=== PATIENT | female | born 1940 | race Caucasian/White ===

== ENCOUNTER 2022-04-16 09:15 | Outpatient (RCR) | payer MEDICARE, OTHER, SELFPAY ==
--- NOTE | 2022-02-28 15:43 | PT.OPDN ---
PT [place] [facility] Daily Note PT [facility] Daily Note Start: 01/22/22 08:20 Freq: Status: Active Protocol: Document 02/28/22 15:14 BMS (Rec: 02/28/22 15:17 BMS [email or web address]) E-signed By Nita Albarran, PT PT OP Daily Progress Note Visit Information Note Type Daily Note,Recert/Progress Note Visit Number [id number] Insurance Authorized Visits MC no info in chart Insurance Information Recert Due Date 03/11/22 Insurance Name Medicare B Medical Diagnosis low back pain Treating Diagnosis low back pain Referring MD Esther CALDERÓN Subjective Subjective have been doing so well! pain is so much better after I see you, and I have been pretty good since I saw you last (2 weeks ago). 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 2. Mild central canal stenosis at L3-4 and L2-3. Mild to mod disc degeneration at multiple levels. Soft tissue mass or cyst on left pelvic sidewall. hx cancer w abdominal surgery Home Exercise Home Exercise Comments Access Code: [email or web address] URL: [email or web address]/ Date: 02/28/2022 Prepared by: Nita Albarran Exercises Standing Hip Flexion AROM - 1 x daily - 5 x weekly - 1-3 sets - 10-20 reps - 5-10 sec hold Standing Hip Extension with Counter Support - 1 x daily - 5 x weekly - 1-3 sets - 10-20 reps - 5-10 sec hold Standing Hip Abduction with Counter Support - 1 x daily - 5 x weekly - 1-3 sets - 10-20 reps - 5-10 sec hold Standing Hamstring Curl with Chair Support - 1 x daily - 5 x weekly - 1-3 sets - 10-20 reps - 5-10 sec hold - hold 30 -60 sec stretch ~~~ Access Code: [email or web address] URL: [email or web address]://[email or web address]/ Date: 01/31/2022 Prepared by: Nita Albarran Exercises ? Standing Lumbar Extension at Wall - Forearms - 2 x daily - 5 x weekly - 1-2 sets - 5 reps - 10 sec hold ? Seated Thoracic Lumbar Extension - 2 x daily - 5 x weekly - 1-3 sets - 5 reps - 5 -10 sec hold - hold 30-60 sec stretch ? Seated Lumbar Flexion Stretch - 1 x daily - 5 x weekly - 1-3 sets - 10-20 reps - 5-10 sec hold - hold 30-60 sec stretch ? Standing Lumbar Spine Flexion Stretch Counter - 2 x daily - 5 x weekly - 2 sets - hold 30-60 sec stretch Access Code: [email or web address] URL: [email or web address] Date: 01/08/2022 Prepared by: Nita Albarran Exercises - Modified Venancio Stretch - 2 x daily - 5 x weekly - 2 sets - hold 30-60 sec stretch - Prone Hip Extension - 1 x daily - 5 x weekly - 1-3 sets - 10-20 reps - 5-10 sec hold - Wall Squat - 1 x daily - 5 x weekly - 10-20 reps - 5-10 sec hold - Gastroc Stretch on Wall - 2 x daily - 5 x weekly - 2 sets - hold 30-60 sec stretch - Doorway Pec Stretch at 90 Degrees Abduction - 2 x daily - 5 x weekly - 2 sets - hold 30-60 sec stretch - Standing Shoulder Flexion Full Range - 1-2 x daily - 5 x weekly - 1-3 sets - 10-20 reps - 5-10 sec hold - step up lateral 6 step x10 eachside, fwd x 10 B, retro x 5 B Objective Other/Pertinent Objective ROM fingertips to floor, B SB and ext WFL STRENGTH: MMT hip flex, quad, HS, adduct and abduct in sitting, ankle groups B all 5/ 5 with no increased pain GAIT: able to stand upright more easily though does fade into slump with increased active time Patient Instructed in Risks/Benefits Yes Therapeutic Exercise Therapeutic Exercise Minutes (minutes) 30 Therapeutic Exercise: To Restore Access Code: [email or web address] Functional Status URL: https://[email or web address]/ Date: 02/28/2022 Prepared by: Nita Albarran Exercises - Standing Hip Flexion AROM 2x5 each side - Standing Hip Extension with Counter Support - 2x5 - standing hip abduction with Counter Support - 2x5 B - Standing Hamstring Curl with Chair Support - 2x5 B recumbent bike 5 min seat 11 - slant board calf stretches 2 x 30 sec - back ext 2x10 30# - leg press 2x10 at 20# Manual Therapy Techniques Manual Therapy Minutes (minutes) 15 Manual Therapy Techniques STM MFR to lowback, gluteals, into thoracic paraspinals. Treatment Minutes Timed Code Treatment Minutes 45 Total Treatment Time 45 Billing Units Manual Therapy Units 1 Therapeutic Exercise Units 2 Assessment/Impression Assessment/Impression patient does still fatigue with ex but is much more tolerant than before. She does have to be careful and required cueing as she started to hip hike or trendelenberg affecting standing exercises. encouraged her to add these in EOD . She remains appropriate to continue with skilled physical therapy to improve mobility, strength and functional balance/gait to imrpove tolerance of activity in daily life and to reduce pain limiting function Plan of Care Physical Therapy Goals STG meet 2-3 weeks MET 1) Patient will demonstrate I HEP and self care/home mgmt techniques for pain management, core stability and ROM. VARIABLE 2 ) Pt report pain <2 -3/10 with activity and provocative positions rolling over in bed, standing up, getting out of car etc. LTG meet 4-8 weeks reports met 1) Pt demo ability to lift 10-15# for home and self care without increased pain using most appropriate applicable body mechanics MET 2) Pt report pain not interrupting sleep more than 2x/ week without use of medication. MET 3) Pt will demo 500' ambulation without limp and with best mechanics and balance to decrease risk of fall with community ambulation for things such as grocery shopping, participation in fitness activities. Modified 4) Pt will demo ability to return to walking, and functional strengthening to maximize independence and longevity. Daily Plan of Care Comments 1-2x/week x 3-4 weeks Recertification Information Initial Certification Date 12/13/21 Recertification Start Date 03/11/22 Recertification Due Date 04/11/22 Reasons to Continue Skilled Therapy patient progressing well but has had limited tolerance of activity and ex up to this point. She does respond well to manual therapy which reduces her recovery time from days (without manual work) to hours (with manual work). Rehabilitation Potential good Continued Plan of Care and Interventions ther ex, neuromuscular re-ed, gait, manual therapy, self residential mgmt, ther activity, poss estim Provider Signature Shows Agreement With POC & Medical Necessity Physician Comment/Change Comment or Changes Physician NPI Number #
== END 2023-02-13 23:59 | disposition home or self-care (01) ==
PROVIDERS: PCP Physician Assistant Medical; Visit Provider Family Medicine
DX: M54.50 Low back pain, unspecified (principal); Z51.89 Encounter for other specified aftercare
CPT/HCPCS: 97110; 97140; 97535

== ENCOUNTER 2022-05-14 15:19 | Outpatient (CLI) | payer MEDICARE, OTHER, SELFPAY ==
[2022-05-14 15:24] LABS: Cholesterol* 153 mg/dL (90-199); HDL Cholesterol* 50 mg/dL (>=50); LDL Cholesterol Calculated 70 mg/dL (<100); Triglycerides* 167 mg/dL (40-149)
== END 2022-05-14 15:20 | disposition home or self-care (01) ==
PROVIDERS: PCP Physician Assistant Medical; Visit Provider Physician Assistant Medical
DX: E78.5 Hyperlipidemia, unspecified (principal)
CPT/HCPCS: 80061

== ENCOUNTER 2022-05-16 12:10 | Outpatient (CLI) | payer MEDICARE, OTHER, SELFPAY ==
[2022-05-16 21:54] LABS: Albumin* 4.4 g/dL (3.3-5.0)
[2022-05-16 21:55] LABS: Chloride* 101 mmol/L (96-114); Potassium* 4.7 mmol/L (3.6-5.1); Sodium* 136 mmol/L (135-149)
[2022-05-16 21:57] LABS: Aspartate Amino Transferase* 26 U/L (12-35); Bilirubin Total* 0.5 mg/dL (0.1-1.5); Carbon Dioxide* 28 mmol/L (20-32); Creatinine* 0.7 mg/dL (0.5-1.5); Estimated Glomerular Filt Rate 86 ml/min; Total Protein* 6.9 g/dL (6.0-8.3)
[2022-05-16 21:58] LABS: Alanine Aminotransferase* 16 U/L (4-35); Alkaline Phosphatase* 86 U/L (40-150); Blood Urea Nitrogen* 21 mg/dL (7-30); Calcium* 9.4 mg/dL (8.4-10.6); Glucose* 103 mg/dL (60-115)
== END 2022-05-16 12:11 | disposition home or self-care (01) ==
LOC: LKVREF 12:13
PROVIDERS: PCP Physician Assistant Medical; Visit Provider Physician Assistant Medical
DX: Z00.00 Encounter for general adult medical examination without abnormal findings (principal); I10 Essential (primary) hypertension; E78.5 Hyperlipidemia, unspecified
CPT/HCPCS: 80053

== ENCOUNTER 2023-07-03 11:47 | Outpatient (REF) | payer MEDICARE, OTHER, SELFPAY ==
--- OUTSIDE RECORDS SUMMARY | 2023-07-07 06:40 | XMS_ITS | Continuity of Care Document ---
Author Name Unknown Organization [facility] Address [address] [address] [place] [address] Phone Care Team Providers Care Cycle Specialist Name Role Phone Shakeel Ambriz MD Unavailable Unavailable Allergies, Adverse Reactions, Alerts Substance Reaction Status Criticality oxycodone Active No Information lidocaine Active No Information Medications Medication Instructions Dosage Effective Dates (start - stop) Status Comments aspirin 81 mg chewable tablet chew 1 tablet by oral route every day 81 MG - Active lisinopril 10 mg tablet take 1 Tablet by ORAL route every day 10 MG - Active Procedures Procedure Date Telephone E&M III 21-30 Min PETTY Offic/outpt E&m Estab Low-mod 9 Colonoscopy Flex; Dx (mar Pro) 19 Offic/outpt E&m New Mod-hi Advance Directives Directive Yes / No Effective Date File Name No Information Encounters Encounter Description Practice Location Reason(s) For Visit Diagnoses Date Provider Providers Copied on Encounter [facility], [address] [address], [place], [place], [id number], [place] tel:[phone] [facility] No Information 0 Pb [place]. [address] [facility], [facility] [address], [place], [place], [id number], [place]. tel:[phone] Telephone E&M III 21-30 Min MD PETTY [facility], [address] [address], [place], [id number], [place] tel:[phone] [facility] GI Symptoms or Concerns (chief complaint) Unspecified constipation 0 Pb [place]ford. [address] [facility], [facility] [address], [place], [id number], [place]. tel:[phone] Referring Provider: Kemi Goldsmith PAC, [address] [facility] [place], [address]. tel:[phone] [facility], [address] [address], [place], [place], [id number], [place] tel:[phone] No Information 0 No Information Referring Provider: Kemi Goldsmith PAC, [address] [facility] [place], [address]. tel:[phone] Offic/outpt E&m Estab Low-mod [facility] JUAN DANIEL, [address] [address], [facility] [place], [id number], [place] tel:[phone] [facility] GI Symptoms or Concerns (chief complaint) Abnormal CAT scanDietary counseling and surveillanceEl evated blood-pressure reading, w/o diagnosis of htn 9 Pb [place]. [address] [facility], [facility] [address], [place], [id number], [place]. tel:[phone] Referring Provider: Referral Self, USE FOR SELF REFERRALS. [facility] JUAN DANIEL, [address] [address], [facility] [place], [id number], [place] tel:[phone] [facility] Hemorrhoids, internalDivert iculosis of colon without diverticulitis Abnormal findings on dx imaging of prt digestive tractDvrtclos of lg int w/o perforation or abscess w/o bleedingOther hemorrhoids 9 Danielle Lindsey. [address] [facility], [facility] [address], [place], [id number], [place]. tel:[phone] Referring Provider: Alyson SEO, [address] [place], [address]. tel:[phone] Offic/outpt E&m New Mod-hi [facility] JUAN DANIEL, [address] [address], [facility] [place], [place], [id number], [place] tel:[phone] [facility] GI Symptoms or Concerns (chief complaint) Unspecified constipationAb normal CAT scanDietary counseling and surveillanceEl evated blood-pressure reading, w/o diagnosis of htn 0 9 Pb [place]. [address] [facility], [facility] [address], [place], [place], [address], [place]. tel:[phone] Referring Provider: Alyson Gu [facility], [address] [place] [address], [address]. tel:[phone] Family History Family Member Type Diagnosis Age At Onset Mother Problem (finding) aneurysm of thoracic ao rta Brother Problem (finding) Problem (finding) Family history of malignant neoplasm of breast in first degree relative Brother Problem (finding) Non-Hodgkin's lymphoma Father Problem (finding) aneurysm of abdominal a brady Immunizations Vaccine Date Status Comments Seasonal trivalent influenza vaccine, adjuvanted, preservative free administered Note: [facility] bi-direct ional interface ; Source: Other Registry influenza, high dose seasona l, preservative-free administered Note: [facility] bi-direct ional interface ; Source: Other Registry influenza, high dose seasona l, preservative-free administered Note: [facility] bi-direct ional interface ; Source: Other Registry influenza, high dose seasona l, preservative-free administered Note: [facility] bi-direct ional interface ; Source: Other Registry Influenza administered Note: [facility] bi-d irectional interface ; Source: Other Registry Prevnar 13 administered Note: [facility] bi-d irectional interface ; Source: Other Registry Pneumococcal conjugate PCV 13 administere d Source: Other Provider Fluzone Quad 6mo or older administered Note: [facility] bi-direct ional interface ; Source: Other Registry Influenza, seasonal, injectable administe red Note: [facility] bi- directional interface ; Source: Other Registry Influenza, seasonal, injectable administe red Note: [facility] bi- directional interface ; Source: Other Registry Payers Payer name Insurance type Covered republican ID Authoriza tion(s) Medicare NGS MB [id number] [facility] [id number] Social History Type Description Quantity Date Captured Comments Alcohol Use Details Unknown Caffeine Use Details Unknown Tobacco Use Status No Information Smoking Status No Information Sex Female Chief Complaint And Reason For Visit No Information Reason For Referral Reason For Referral No Information Plan Of Treatment Date Type Action Status Goal Lifestyle education regardin g diet completed Goal Lifestyle education regardin g diet completed Referral Ordered: Colonoscopy Appointment date/timeframe: 11/11/2018 ordered History Of Present Illness Encounter Date Complaint History Of Prese nt Illness GI Symptoms or Concerns This is an 79-year-old female who I am doing a telephone consultation on for followup for constipation. The patient is in a private setting. Her , Wenceslao was nearby, but not on the phone. I did have her consent to proceed with the telephone consultation. The total call was 24 minutes, the majority spent on medical consultation.The patient has a history of endometrial cancer having surgery in 2018 with subsequent chemotherapy and radiation. She does comment that the uterus was taken out in sections and she worries about cancer cells intra-abdominally. She has been followed by an oncologist. They recently told her that they could extend the visits to every 6 months. 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 She has hypertension, DVT in her left femoral vein a couple of years ago perioperatively, diverticulosis. [facility]vi GI Symptoms or Concerns This is a 78-year-old female who comes in for followup after her recent colonoscopy. I had seen her previously for constipation and thickening of the cecum and proximal ascending seen on CT scan. Please refer to my note from 11/04/2018 for further details. Subsequently, she had the colonoscopy done by Dr. Brown on 11/12/2018. This was a normal exam to the cecum except for some sigmoid diverticulosis. There were small internal hemorrhoids. Rest of the exam was unremarkable. GI Symptoms or Concerns This is a 78-year-old female with a history of endometrial cancer who is status post surgery in August 2017 with subsequent radiation treatment. I do not have all the records regarding this, but I have some. She also has a history of basal cell cancer status post Mohs surgery in 1993. She is referred by her primary clinic, [facility], for consultation for problems with her bowel movements. She states ever since August 2017 after the surgery, she has had problems with constipation. She has used Senokot and another laxative. That can help to some degree, but intermittently she has worsening symptoms and then we will have pencil-thin stools or scybalous stools, sometimes explosive diarrhea. The explosive diarrhea was happening more often recently and she went in and was seen with her primary clinic. She had a CT scan done on 10/29/2018. This showed abnormal cecum and proximally ascending colon with circumferential wall thickening and pericolonic fat stranding suggesti Functional Status Date Functional Assessmen t No Information Instructions Date Instruction Additional Infor samanta PROVIDER PLANAt this point, she may be able to decrease the MiraLax slightly perhaps to a 3/4 of a capful, half a capful a day to see if that helps improve her bowel movements and symptoms or not. If she is still having problems, we could consider a pelvic floor testing by referring her to the Pelvic Floor Clinic, where her pelvic floor could be assessed, look for rectocele, etc. She will touch base with her oncologist. She will let me know if she is still having problems or issues, concerns or other questions. Related to Unspecified constipation Lifestyle education regarding di et Related to Dietary counseling and surveillance Lifestyle education regarding di et Related to Dietary counseling and surveillance Assessments Type Assessment Date No Information Patient Care Teams Name Effective Dates (start - stop) Status Members No Information
== END 2023-07-03 11:48 | disposition home or self-care (01) ==
LOC: NFLDREF 11:47
PROVIDERS: PCP Physician Assistant Medical; Referring Provider Physician Assistant Medical; Visit Provider Physician Assistant Medical
DX: E78.5 Hyperlipidemia, unspecified (principal); I10 Essential (primary) hypertension; M54.50 Low back pain, unspecified; G89.29 Other chronic pain; K59.00 Constipation, unspecified
CPT/HCPCS: 80053

== ENCOUNTER 2023-08-21 13:02 | Outpatient (CLI) | payer MEDICARE, OTHER, SELFPAY ==
--- OUTSIDE RECORDS SUMMARY | 2023-08-21 13:24 | XMS_ITS | Clinical Summary ---
Author Name Unknown Organization [facility] Address [address] [place] [address] Care Team Providers Care Take Down Inspector Name Role Phone [facility] Primary Care Provider + Allergies No known active allergies Medications Medication Sig Dispensed Refills Start Date End Date Status lisinopril (PRINIVIL,ZESTRIL) 10 MG tablet Take 10 mg by mouth daily 0 Active Docusate Sodium (DOCQLACE PO) Take 100 mg by mouth 2 times daily 0 Active polyethylene glycol (MIRALAX/GLYCOLAX) powder Take 17 g by mouth daily as needed for constipation 0 Active oxyCODONE-acetamino phen (PERCOCET) 5-325 MG per tablet Take 1-2 tablets by mouth every 4 hours as needed for moderate to severe pain Take 1 tablet po every 4 hours as needed for pain 1-5/10 or Take 2 tablet po every 4 hours as needed for pain 6-10/10 0 Active Warfarin Sodium (COUMADIN PO) Take 4 mg by mouth daily 0 Active Acetaminophen (TYLENOL PO) Take 650 mg by mouth every 4 hours as needed for mild pain or fever 0 Active Active Problems Problem Noted Date Diagnosed Date Right knee pain 04/04/2015 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 Provider to review and confirm. HTN (hypertension) 04/04/2015 H/O bilateral cataract extraction 04/04/2015 Social History Tobacco Use Types Packs/Day Years Used Date Smoking Tobacco: Never Alcohol Use Standard Drinks/Week Comments Not Asked 0 (1 standard drink = 0.6 oz pur e alcohol) Adolescent Education Answer Date Record ed Getting School Help Needed Not on file 05/13 Sex and Gender Information Value Date Recorded Sex Assigned at Not on file Gender Identity Not on file Sexual Orientation Not on file Last Filed Vital Signs Vital Sign Reading Time Taken Comments Blood Pressure 143/76 02/21/2023 12:00 AM CDT Pulse 93 02/21/2023 12:00 AM CDT Temperature 36.6 ??C (97.9 ??F) 02/20/2023 7:50 PM CD T Respiratory Rate 18 02/20/2023 7:50 PM CDT Oxygen Saturation 95% 02/20/2023 11: 15 PM CDT Inhaled Oxygen Concentration - - Weight 113.8 kg (250 lb 12.8 oz) 2014 11:09 AM CDT Height 175.3 cm (5' 9) 04/04/2015 11:5 4 AM CDT Body Mass Index 37.04 04/04/2015 11:54 AM CDT Plan of Treatment Health Maintenance Due Date Last Done Comments ADVANCE CARE PLANNING 1940 ANNUAL REVIEW OF HM ORDERS 1940 DEXA 1940 DTAP/TDAP/TD IMMUNIZATION (1 - Tdap) 01/31/1964 ZOSTER IMMUNIZATION (1 of 2) 1989 RSV VACCINE ( & 60+) (1 - 1-dose 60+ series) 1999 FALL RISK ASSESSMENT 01/31/2004 MEDICARE ANNUAL WELLNESS VISIT 01/31/2004 Pneumococcal Vaccine: 65+ Years (2 of 2 - PPSV23 or PCV20) 06/02/2016 06/02/2015 COVID-19 Vaccine ( season) 2023 04/10/2022, 12/21/2021, 05/04/2021, Additional history exists INFLUENZA VACCINE (#1) 2023 , 04/28/2020, 06/03/2019, Additional history exists PHQ-2 (once per calendar year) 2023 HPV IMMUNIZATION Aged Out No longer e ligible based on patient's age to complete this topic IPV IMMUNIZATION Aged Out No longer e ligible based on patient's age to complete this topic MENINGITIS IMMUNIZATION Aged Out No l onger eligible based on patient's age to complete this topic RSV MONOCLONAL ANTIBODY Aged Out No l onger eligible based on patient's age to complete this topic Care Teams Take Down Inspector Relationship Specialty Start Date End Date [facility] [address] [place] [id number] PCP - General 02/20/23
--- OUTSIDE RECORDS SUMMARY | 2023-08-21 13:24 | XMS_ITS | Referral Summary ---
Author Name Unknown Organization [facility] Address [address] [place] [address] Care Team Providers Care Director Process Name Role Phone [facility], [facility] Primary Care Provider + Allergies No known [...] 04/04/2015 11:54 AM CDT Plan of Treatment Not on file Care Teams Director Process Relationship Specialty Start Date End Date [facility], [facility] [address] [place] [address] PCP - General 02/20/23
--- OUTSIDE RECORDS SUMMARY | 2023-08-21 13:24 | XMS_ITS | Continuity of Care Document ---
Author Name Unknown Organization [facility] Address [address] [address] [place] [address] Phone Care Team Providers Care Supervisor Diagnostic Name Role Phone Shakeel Ambriz MD Unavailable [...] Diagnoses Date Provider Providers Copied on Encounter [facility], [address] [address], [place], [place], [id number], [place] tel:[phone] [facility] No Information 0 Pb [place]. [address] [facility], [facility] [address], [place], [place], [id number], [place]. tel:[phone] Telephone E&M III 21-30 Min MD PETTY [facility], [address] [address], [place], [id number], [place] tel:[phone] [facility] GI Symptoms or Concerns (chief complaint) Unspecified constipation 0 Pb [place]. [address] [facility], [facility] [address], [place], [id number], [place]. tel:[phone] Referring Provider: Kemi Goldsmith PAC, [address] [facility] [place], [address]. tel:[phone] [facility], [address] [address], [place], [place], [id number], [place] tel:[phone] No Information 0 No Information Referring Provider: Kemi Goldsmith PAC, [address] [facility] [place], [address]. tel:[phone] Offic/outpt E&m Estab Low-mod [facility] JUAN DANIEL, [address] [address], [facility] [place], [place], [id number], [place] tel:[phone] [facility] GI Symptoms or Concerns (chief complaint) Abnormal CAT scanDietary counseling and surveillanceEl evated blood-pressure reading, w/o diagnosis of htn 9 Pb [place]. [address] [facility], [facility] [address], [place], [id number], [place]. tel:[phone] Referring Provider: Referral Self, USE FOR SELF REFERRALS. [facility] JUAN DANIEL, [address] [address], [facility] [place], [id number], [place] tel:[phone] [facility] Hemorrhoids, internalDivert iculosis of colon without diverticulitis Abnormal findings on dx imaging of prt digestive tractDvrtclos of lg int w/o perforation or abscess w/o bleedingOther hemorrhoids 9 Danielle Lindsey. [address] [facility], [facility] [address], [place], [address], [place]. tel:[phone] Referring Provider: Alyson SEO, [address] [place], [address]. tel:[phone] Offic/outpt E&m New Mod-hi [facility] JUAN DANIEL, [address] [address], [facility] [place], [place], [id number], [place] tel:[phone] [facility] GI Symptoms or Concerns (chief complaint) Unspecified constipationAb normal CAT scanDietary counseling and surveillanceEl evated blood-pressure reading, w/o diagnosis of htn 0 9 Pb [place]. [address] [facility], [facility] [address], [place], [place], [address], [place]. tel:[phone] Referring Provider: Alyson Gu [facility], [address] [place] [address], [address]. tel:[phone] Family History Family Member Type Diagnosis Age [...] republican ID Authoriza tion(s) Medicare NGS MB [id number] [facility] [place] [employer] [facility] [id number] Social History Type Description Quantity Date Captured [...]
--- OUTSIDE RECORDS SUMMARY | 2023-08-21 13:24 | XMS_ITS | Continuity of Care Document ---
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 Medication Details Route Status Patient Instructions Prescription Expires Prescription Number Last Dispense Date Ordering Provider Order Date Source ATORVASTATI N CALCIUM (atorvastat in calcium), 10 MG, TABLET, ORAL, [facility], 500 ea. BOTTLE Cancele d [id number] : 2023 Pharmac y Data Trans[facility] t[facility] Service [facility]ilit y LISINOPRIL (LISINOPRIL ), 10 MG, TABLET, ORAL, [facility], 1000 ea. BOTTLE Cancele d [id number] : 2023 Pharmac y Data Transac tion Service Facilit y Immunizations Combined list of available immunizations from the Department of Defense and Veterans Affairs facilities. Immunization Series Date Given Administered By Site Reaction Lot Number CVX Code Drug Medical Delivery Technician Status Comments Source COVID-19, mRNA, LNP-S, PF, 30 mcg/0.3 mL dose, leon-sucrose 2021 JOSE, () Not Given COVID-19, mRNA, LNP-S, PF, 30 mcg/0.3 mL dose, leon-sucr ose [facility] Influenza, high dose seasonal 2015 KARELY SOLIMAN () Not Given Influenza , high dose seasonal DoD zoster live 2014 KIND, () Not Given zoster live DoD Social History Combined list of available smoking, tobacco, and other social history from Department of Defense and Veterans Affairs facilities. Social History Type Response Date Comment Sourc e This section is an empty social history section. DoD
--- OUTSIDE RECORDS SUMMARY | 2023-08-21 13:24 | XMS_ITS | Encounter Summary ---
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 Name Role Phone Clinic, [facility] Primary Care Provider + Reason for Visit * Reason Comments Extremity Weakness Encounter Details Date Type Department Care Team (Late st Contact Info) Description 02/20/2023 7:46 PM CDT - 02/21/2023 12:37 AM CDT Emergency [facility] [address] [place] [address] Ankit Pratt MD [facility] [address] [place], [place] [phone] Episode of dizziness; Episodic weakness; Dehydration Discharge Disposition: Home or Self Care Social History Tobacco Use Types Packs/Day Years Used Date Smoking Tobacco: Never Alcohol Use Standard Drinks/Week Comments Not Asked 0 (1 standard drink = 0.6 oz pur e alcohol) Sex and Gender Information Value Date Recorded Sex Assigned at Not on file Gender Identity Not on file Sexual Orientation Not on file documented as of this encounter Last Filed Vital Signs Vital Sign Reading Time Taken Comments Blood Pressure 143/76 02/21/2023 12:00 AM CDT Pulse 93 02/21/2023 12:00 AM CDT Temperature 36.6 ??C (97.9 ??F) 02/20/2023 7:50 PM CD T Respiratory Rate 18 02/20/2023 7:50 PM CDT Oxygen Saturation 95% 02/20/2023 11:15 PM CDT Inhaled Oxygen Concentration - - Weight - - Height - - Body Mass Index - - documented in this encounter Discharge Instructions * Attachments The following attachments cannot be sent through Care Everywhere. * Weakness: Generalized (Serbian) documented in this encounter Medications at Time of Discharge Medication Sig Dispensed Refills Start Date End Date Acetaminophen (TYLENOL PO) Take 650 mg by mouth every 4 hours as needed for mild pain or fever 0 Docusate Sodium (DOCQLACE PO) Take 100 mg by mouth 2 times daily 0 lisinopril (PRINIVIL,ZESTRIL) 10 MG tablet Take 10 mg by mouth daily 0 oxyCODONE-acetaminophen (PERCOCET) 5-325 MG per tablet Take 1-2 tablets by mouth every 4 hours as needed for moderate to severe pain Take 1 tablet po every 4 hours as needed for pain 1-5/10 or Take 2 tablet po every 4 hours as needed for pain 6-1010 0 polyethylene glycol (MIRALAX/GLYCOLAX) powder Take 17 g by mouth daily as needed for constipation 0 Warfarin Sodium (COUMADIN PO) Take 4 mg by mouth daily 0 documented as of this encounter ED Notes * Tierney Luke RN - 02/20/2023 10:45 PM CDT Pt states to RN I feel much better pt eyes open asked for HOB to be elevated. * Tierney Luke RN - 02/20/2023 7:52 PM CDT Pt arrives via EMS from restaurant after friends and called due to pts increased tiredness,weakness, diaphoretic. Pt was outside today in the [place] and did have one marylin at the restaurant, which is not normal for her to drink. Pt states that this is one the symptoms became more apparent. EMS BS = 127. * Jenny Truong RN - 02/20/2023 7:46 PM CDT Bed: ED28 Expected date: Expected time: Means of arrival: Comments: [facility] 595 * Ankit Pratt MD - 02/20/2023 7:46 PM CDT History Chief Complaint: Extremity Weakness HPI Amy Gomez is a 83 year old female with a history of hypertension and DVT who presents via EMS with weakness. EMS explains that while at a restaurant with family the patient suddenly felt weak, fatigued, and diaphoretic. She presents with her who explains that they did several chores throughout the day, some of which requiring time spent outside in the sun. He recalls the patient having water throughout the day but believes her being dehydrated is probable. In the ED she denies any pain, dizziness, shortness of breath, vision changes, or recent falls. She says that she has not felt these symptoms before. Independent Historian: Spouse/Partner - They report portion of HPI Review of External Notes: Reviewed 05/23/22 office visit Medications: Tylenol Docqlace Lisinopril Percocet Miralax Coumadin Past Medical History: Osteoarthritis Hyperlipidemia Hypertension Bilateral cataract Leg DVT, left Anemia Leukocytosis Carcinoma Endometrial cancer Past Surgical History: Colposcopy entire vagina w/ biopsy Biopsy endometrial Excision of basal cell ca Tonsillectomy Breast biopsy Pelvic fluid aspiration TKA Rotator cuff repair Physical Exam Patient Vitals for the past 24 hrs: BP Temp Temp src Pulse Resp SpO2 02/21/23 0000 (!) 143/76 -- -- 93 -- -- 02/20/23 2315 (!) 140/74 -- -- 98 -- 95 % 02/20/23 2300 (!) 141/70 -- -- 94 -- 95 % 02/20/23 2245 128/65 -- -- 89 -- 98 % 02/20/23 2230 126/61 -- -- 91 -- 97 % 02/20/235 136/66 -- -- 84 -- 98 % 02/20/235 132/70 -- -- 86 -- 100 % 02/20/230 133/69 -- -- 74 -- 97 % 07/27/23 2115 130/73 -- -- 80 -- 97 % 02/20/232099 131/68 -- -- 78 -- 99 % 02/20/232014 137/66 -- -- 79 -- 98 % 02/20/231999 126/69 -- -- 78 -- 96 % 02/20/231949 -- 97.9 ??F (36.6 ??C) Oral 80 18 93 % Physical Exam Constitutional: Alert, attentive HENT: Nose: Nose normal. Mouth/Throat: Oropharynx is clear, mucous membranes are moist Eyes: EOM are normal. Pupils are equal, round, and reactive to light. CV: Regular rate and rhythm, no murmurs, rubs or gallops. Chest: Effort normal and breath sounds normal. GI: No distension. There is no tenderness MSK: Normal range of motion. Neurological: A/Ox3; Cranial nerves 2-12 intact; 5/5 strength throughout the upper and lower extremities; sensation intact to light touch throughout the upper and lower extremities; normal gait No meningismus Skin: Skin is warm and dry. Emergency Department Course ECG ECG taken at 1950, ECG read at 1954 Normal sinus rhythm Normal ECG Rate 81 bpm. PA interval 150 ms. QRS duration 84 ms. QT/QTc 394/457 ms. P-R-T axes 48 18 40. Imaging: CT Head w/o Contrast Final Result IMPRESSION: 1. No CT evidence for acute intracranial process. 2. Brain atrophy and presumed chronic microvascular ischemic changes as above. Report per radiology Laboratory: Labs Ordered and Resulted from Time of ED Arrival to Time of ED Departure BASIC METABOLIC PANEL - Abnormal Result Value Sodium 135 (*) Potassium 3.6 Chloride 100 Carbon Dioxide (CO2) 19 (*) Anion Gap 16 (*) Urea Nitrogen 17.4 Creatinine 0.87 Calcium 9.0 Glucose 171 (*) GFR Estimate 65 LACTIC ACID WHOLE BLOOD - Abnormal Lactic Acid 3.3 (*) ROUTINE UA WITH MICROSCOPIC - Abnormal Color Urine Straw Appearance Urine Clear Glucose Urine Negative Bilirubin Urine Negative Ketones Urine Negative Specific Dalhart Urine 1.007 Blood Urine Negative pH Urine 5.5 Protein Albumin Urine Negative Urobilinogen Urine Normal Nitrite Urine Negative Leukocyte Esterase Urine Moderate (*) Bacteria Urine Few (*) RBC Urine <1 WBC Urine 8 (*) Squamous Epithelials Urine 1 ETHYL ALCOHOL LEVEL - Abnormal Alcohol ethyl 0.07 (*) LACTIC ACID WHOLE BLOOD - Abnormal Lactic Acid 2.3 (*) BASIC METABOLIC PANEL - Abnormal Sodium 137 Potassium 4.2 Chloride 104 Carbon Dioxide (CO2) 21 (*) Anion Gap 12 Urea Nitrogen 15.4 Creatinine 0.75 Calcium 8.4 (*) Glucose 145 (*) GFR Estimate 78 ISTAT GASES LACTATE VENOUS POCT - Abnormal Lactic Acid POCT 1.7 Bicarbonate Venous POCT 25 O2 Sat, Venous POCT 67 (*) pCO2 Venous POCT 46 pH Venous POCT 7.35 pO2 Venous POCT 37 TROPONIN T, HIGH SENSITIVITY - Normal Troponin T, High Sensitivity <6 INR - Normal INR 1.11 INFLUENZA A/B, RSV, & SARS-COV2 PCR - Normal Influenza A PCR Negative Influenza B PCR Negative RSV PCR Negative SARS CoV2 PCR Negative CBC WITH PLATELETS AND DIFFERENTIAL WBC Count 5.6 RBC Count 3.99 Hemoglobin 12.6 Hematocrit 38.3 MCV 96 MCH 31.6 MCHC 32.9 RDW 13.2 Platelet Count 258 % Neutrophils 55 % Lymphocytes 28 % Monocytes 10 % Eosinophils 6 % Basophils 1 % Immature Granulocytes 0 NRBCs per 100 WBC 0 Absolute Neutrophils 3.1 Absolute Lymphocytes 1.6 Absolute Monocytes 0.6 Absolute Eosinophils 0.4 Absolute Basophils 0.1 Absolute Immature Granulocytes 0.0 Absolute NRBCs 0.0 BLOOD CULTURE BLOOD CULTURE Procedures None Emergency Department Course & Assessments: Interventions: Medications 0.9% sodium chloride BOLUS (0 mLs Intravenous Stopped 02/20/232236) 0.9% sodium chloride BOLUS (0 mLs Intravenous Stopped 02/20/232099) 0.9% sodium chloride BOLUS (0 mLs Intravenous Stopped 02/20/23 2344) Assessments: 1942 I obtained history and examined the patient as noted above. 2044 I rechecked the patient. She reports feeling a little better. 17 I rechecked the patient and explained findings. Independent Interpretation (X-rays, CTs, rhythm strip): No intracranial hemorrhage on CT head Consultations/Discussion of Management or Tests: None Social Determinants of Health affecting care: None Disposition: The patient was discharged to home. Impression & Plan Medical Decision Making: This is a pleasant 83-year-old female who presents for evaluation of nonspecific weakness and mild dizziness in the context of heat exposure and having a marylin dinner today. Initial lactic is elevated in the absence of clear infectious prodrome, fever, leukocytosis, or evidence of infection. UAis unremarkable. No evidence of skin infection. No signs or symptoms of pneumonia. She has been on focal neurologic exam that is normal. CT head shows no acute abnormality. With rehydration, the patient feels entirely improved. Lactic is clearing appropriately. She would like to be discharged home and is ambulatory in the department. Suspect component of dehydration, heat exhaustion, and adverse reaction to alcohol. Believe she is safe for discharge at this time in the care of her who is also sober. Return precautions for weakness, dizziness, or any other concerns. Primary care follow-up for recheck in 2 to 3 days. Diagnosis: ICD-10-CM 1. Episode of dizziness R42 2. Episodic weakness R53.1 3. Dehydration E86.0 Scribe Disclosure: I, ISAAK CRUZ, am serving as a scribe at 8:19 PM on 02/20/2023 to document services personally performed by Ankit Pratt MD based on my observations and the provider's statements to me. Ankit Pratt MD 02/21/23 0159 documented in this encounter Plan of Treatment Not on file documented as of this encounter Procedures Procedure Name Priority Date/Time Associated Diagnosis Comments ISTAT GASES LACTATE VENOUS POCT STAT 02/20/2023 11:47 PM CDT ROUTINE UA WITH MICROSCOPIC STAT 02/20/2023 11:25 PM CDT LACTIC ACID WHOLE BLOOD STAT 02/20/2023 10:37 PM CDT BASIC METABOLIC PANEL STAT 02/20/2023 10:37 PM CDT INFLUENZA A/B, RSV, & SARS-COV2 PCR STAT 02/20/2023 8:[address] HEAD W/O CONTRAST STAT 02/20/2023 8:42 PM CDT BLOOD CULTURE STAT 02/20/2023 8:18 PM CDT LACTIC ACID WHOLE BLOOD STAT 02/20/2023 7:59 PM CDT BLOOD CULTURE STAT 02/20/2023 7:59 PM CDT EXTRA TUBE STAT 02/20/2023 7:54 PM CDT EXTRA PURPLE TOP TUBE STAT 02/20/2023 7:54 PM CDT EXTRA GREEN TOP (LITHIUM HEPARIN) TUBE STAT 02/20/2023 7:54 PM CDT EXTRA RED TOP TUBE STAT 02/20/2023 7: 54 PM CDT EXTRA BLUE TOP TUBE STAT 02/20/2023 7 :54 PM CDT CBC WITH PLATELETS AND DIFFERENTIAL STAT 02/20/2023 7:54 PM CDT TROPONIN T, HIGH SENSITIVITY STAT 02/20/2023 7:54 PM CDT CBC WITH PLATELETS & DIFFERENTIAL STAT 02/20/2023 7:54 PM CDT INR STAT 02/20/2023 7:54 PM CDT ETHYL ALCOHOL LEVEL STAT 02/20/2023 7 :54 PM CDT BASIC METABOLIC PANEL STAT 02/20/2023 7:54 PM CDT EKG 12-LEAD, TRACING ONLY STAT 02/20/2023 7:51 PM CDT documented in this encounter Results * (ABNORMAL) iStat Gases (lactate) venous, POCT (02/20/2023 11:47 PM CDT) [facility] Lactic Acid POCT 1.7 <=2.0 mmol/L 02/20/2023 11:50 PM CDT [facility] POC Bicarbonate Venous POCT 25 21 - 28 mmol/L 02/20/2023 11:50 PM CDT [facility] P[facility] O2 Sat, Venous POCT 67(L) 94 - 100 % 02/20/2023 11:50 PM CDT [facility] pCO2 Venous POCT 46 40 - 50 mm Hg 02/20/2023 11:50 PM CDT [facility] P[facility] pH Venous POCT 7.35 7.32 - 7.43 02/20/2023 11:50 PM CDT [facility] POC pO2 Venous POCT 37 25 - 47 mm Hg 02/20/2023 11:50 PM CDT [facility] P[facility] Blood, venous BLOOD SPECIMEN / Unknown 02/20/2023 11:47 PM CDT 02/20/2023 11:50 PM CDT Ankit Pratt MD LAB - BEAKER POCT [facility] POC [facility] [address] [facility] Lab (1st floor, no room number) [place] [address], [facility] [phone] * (ABNORMAL) UA with Microscopic (02/20/2023 11:25 PM CDT) Color Urine Straw Colorless, Straw, Light Yellow, Yellow 02/20/2023 11:56 PM CDT LABORATORY Appearance Urine Clear Clear 02/21/20 11:56 PM CDT LABORATORY Glucose Urine Negative Negative mg/dL 02/20/2023 11:56 PM CDT LABORATORY Bilirubin Urine Negative Negative 11:56 PM CDT LABORATORY Ketones Urine Negative Negative mg/dL 02/20/2023 11:56 PM CDT LABORATORY Specific Dalhart Urine 1.007 1.003 - 1.035 02/20/2023 11:56 PM CDT LABORATORY Blood Urine Negative Negative 02/20/2023 11:56 PM CDT LABORATORY pH Urine 5.5 5.0 - 7.0 02/20/2023 11:56 PM CDT LABORATORY Protein Albumin Urine Negative Negative mg/dL 02/20/2023 11:56 PM CDT LABORATORY Urobilinogen Urine Normal Normal, 2.0 mg/dL 02/20/2023 11:56 PM CDT LABORATORY Nitrite Urine Negative Negative 02/20/2023 11:56 PM CDT LABORATORY Leukocyte Esterase Urine Moderate(A) Negative 02/20/2023 11:56 PM CDT LABORATORY Bacteria Urine Few(A) None Seen /HPF 02/20/2023 11:56 PM CDT LABORATORY RBC Urine <1 <=2 /HPF 02/20/2023 11:56 PM CDT LABORATORY WBC Urine 8(H) <=5 /HPF 02/20/2023 11:56 PM CDT LABORATORY Squamous Epithelials Urine 1 <=1 /HPF 02/20/2023 11:56 PM CDT LABORATORY Urine URINE SPECIMEN FROM URINARY CONDUIT / Unknown Non-blood Collection / Unknown 02/20/2023 11:25 PM CDT 02/20/2023 11:36 PM CDT Ankit Pratt MD LAB - URINE ORDER [facility] [address] Lab (1st floor, no room number) [place] [address] [phone] * (ABNORMAL) Basic metabolic panel (BMP) (02/20/2023 10:37 PM CDT) Sodium 137 136 - 145 mmol/L 02/20/2023 11:02 PM CDT LABORATORY Potassium 4.2 3.4 - 5.3 mmol/L 02/20/2023 11:02 PM CDT LABORATORY Chloride 104 98 - 107 mmol/L 02/20/2023 11:02 PM CDT LABORATORY Carbon Dioxide (CO2) 21(L) 22 - 29 mmol/L 02/20/2023 11:02 PM CDT LABORATORY Anion Gap 12 7 - 15 mmol/L 02/20/2023 11:02 PM CDT LABORATORY Urea Nitrogen 15.4 8.0 - 23.0 mg/dL 02/20/2023 11:02 PM CDT LABORATORY Creatinine 0.75 0.51 - 0.95 mg/dL 02/20/2023 11:02 PM CDT LABORATORY Calcium 8.4(L) 8.8 - 10.2 mg/dL 02/20/2023 11:02 PM CDT [facility] Glucose 145(H) 70 - 99 mg/dL 02/20/2023 11:02 PM CDT [facility] GFR Estimate 78 >60 mL/min/1.7 3m2 02/20/2023 11:02 PM CDT [facility] Blood BLOOD SPECIMEN / Unknown Venipuncture / Unknown 02/20/2023 10:37 PM CDT 02/20/2023 10:40 PM CDT Ankit Pratt MD LAB - BLOOD ORDER [facility] [address] Lab (1st floor, no room number) [place] [id number], [facility] [phone] * (ABNORMAL) Lactic acid whole blood (02/20/2023 10:37 PM CDT) Lactic Acid 2.3(H) 0.7 - 2.0 mmol/L 02/20/2023 10:43 PM CDT [facility] Blood BLOOD SPECIMEN / Unknown Venipuncture / Unknown 02/20/2023 10:37 PM CDT 02/20/2023 10:40 PM CDT Ankit Pratt MD LAB - BLOOD ORDER [facility] [address] Lab (1st floor, no room number) [place] [phone], [facility] [phone] * Symptomatic Influenza A/B, RSV, & SARS-CoV2 PCR (COVID-19) Nasopharyngeal (02/20/2023 8:55 PM CDT) Influenza A PCR Negative Negative 02/20/2023 9:46 PM CDT [facility] Influenza B PCR Negative Negative 02/20/2023 9:46 PM CDT [facility] RSV PCR Negative Negative 02/20/2023 9:46 PM CDT [facility] SARS CoV2 PCR Negative Negative 02/20/2023 9:46 PM CDT [facility] Comment:NEGATIVE: SARS-CoV-2 (COVID-19) RNA not detected, presumed negative. Swab NASOPHARYNGEAL STRUCTURE / Unknown Non-blood Collection / Unknown 02/20/2023 8:55 PM CDT 02/20/2023 9:07 PM CDT Narrative LABORATORY - 02/20/2023 9:46 PM CDT Testing was performed using the Xpert Xpress CoV2/Flu/RSV Assay on the [employer] GeneXpert Instrument. This test should be ordered for the detection of SARS-CoV-2, influenza, and RSV viruses in individuals who meet clinical and/or epidemiological criteria. Test performance is unknown in asymptomatic patients. This test is for in vitro diagnostic use under the FDA EUA for laboratories certified under CLIA to perform high or moderate complexity testing. This test has not been FDA cleared or approved. A negative result does not rule out the presence of PCR inhibitors in the specimen or target RNA in concentration below the limit of detection for the assay. If only one viral target is positive but coinfection with multiple targets is suspected, the sample should be re-tested with another FDA cleared, approved, or authorized test, if coinfection would change clinical management. This test was validated by the [facility] [employer]. These laboratories are certified under the Clinical Laboratory Improvement Amendments of 1988 (CLIA-88) as qualified to perform high complexity laboratory testing. Ankit Pratt MD LAB - MICRO GENER AL ORDERABLES [facility] [address] [facility] Lab (1st floor, no room number) [place] [address], [facility] [phone] * CT Head w/o Contrast (02/20/2023 8:42 PM CDT) Anatomical Region Laterality Modality Head, SUBRAD CT NEURO, SUBRA D CT NEURO, UMP CT NEURO, RAD CT Computed Tomography 02/20/2023 8:42 PM CDT Impressions 02/20/2023 8:59 PM CDT IMPRESSION: 1. ??No CT evidence for acute intracranial process. 2. ??Brain atrophy and presumed chronic microvascular ischemic changes as above. Narrative 02/20/2023 8:59 PM CDT EXAM: CT HEAD W/O CONTRAST LOCATION: [facility] DATE: 02/20/2023 INDICATION: Weakness, confusion. COMPARISON: None. TECHNIQUE: Routine CT Head without IV contrast. Multiplanar reformats. Dose reduction techniques were used. FINDINGS: INTRACRANIAL CONTENTS: No intracranial hemorrhage, extraaxial collection, or mass effect. ??No CT evidence of acute infarct. Mild presumed chronic small vessel ischemic changes. Mild to moderate generalized volume loss. No hydrocephalus. VISUALIZED ORBITS/SINUSES/MASTOIDS: No intraorbital abnormality. No paranasal sinus mucosal disease. No middle ear or mastoid effusion. BONES/SOFT TISSUES: No acute abnormality. Procedure Note Tato Casillas MD - 02/20/2023 EXAM: CT HEAD W/O CONTRAST LOCATION: [facility] DATE: 02/20/2023 INDICATION: Weakness, confusion. COMPARISON: None. TECHNIQUE: Routine CT Head without IV contrast. Multiplanar reformats.Dose reduction techniques were used. FINDINGS: INTRACRANIAL CONTENTS: No intracranial hemorrhage, extraaxial collection,or mass effect. No CT evidence of acute infarct. Mild presumed chronicsmall vessel ischemic changes. Mild to moderate generalized volume loss.No hydrocephalus. VISUALIZED ORBITS/SINUSES/MASTOIDS: No intraorbital abnormality. Noparanasal sinus mucosal disease. No middle ear or mastoid effusion. BONES/SOFT TISSUES: No acute abnormality. IMPRESSION: 1. No CT evidence for acute intracranial process. 2. Brain atrophy and presumed chronic microvascular ischemic changes asabove. Ankit Pratt MD G CT ORDERABLES * Blood Culture Hand, Left (02/20/2023 8:18 PM CDT) Culture No Growth 02/25/2023 10:46 PM CDT [facility] Blood STRUCTURE OF LEFT HAND / Unknown Venipuncture / Unknown 02/20/2023 8:18 PM CDT 02/20/2023 8:23 PM CDT Ankit Pratt MD LAB - MICRO GENER AL ORDERABLES [facility] [address] [facility], [address] [place] [address], [place] [phone] * Blood Culture Peripheral Blood (02/20/2023 7:59 PM CDT) Culture No Growth 02/25/2023 10:46 PM CDT [facility] Blood BLOOD SPECIMEN / Unknown Venipuncture / Unknown 02/20/2023 7:59 PM CDT 02/20/2023 8:10 PM CDT Ankit Pratt MD LAB - MICRO GENER AL ORDERABLES [facility] [address] [facility], [address] [address], [facility] [phone] * (ABNORMAL) Lactic acid whole blood (02/20/2023 7:59 PM CDT) Lactic Acid 3.3(H) 0.7 - 2.0 mmol/L 02/20/2023 8:02 PM CDT LABORATORY Blood BLOOD SPECIMEN / Unknown Venipuncture / Unknown 02/20/2023 7:59 PM CDT 02/20/2023 8:00 PM CDT Ankit Pratt MD LAB - BLOOD ORDER [facility] [address] Lab (1st floor, no room number) [place] [address], [place] [phone] * (ABNORMAL) Alcohol level blood (02/20/2023 7:54 PM CDT) Alcohol ethyl 0.07(H) <=0.01 g/dL 02/20/2023 8:55 PM CDT LABORATORY Blood STRUCTURE OF RIGHT HAND / Unknown Venipuncture / Unknown 02/20/2023 7:54 PM CDT 02/20/2023 8:04 PM CDT Ankit Pratt MD LAB - BLOOD ORDER NICOLE [facility] [address] Lab (1st floor, no room number) [place] [address], [facility] [phone] * CBC with platelets and differential (02/20/2023 7:54 PM CDT) WBC Count 5.6 4.0 - 11.0 10e3/uL 02/20/2023 8:05 PM CDT [facility] RBC Count 3.99 3.80 - 5.20 10e6/uL 02/20/2023 8:05 PM CDT [facility] Hemoglobin 12.6 11.7 - 15.7 g/dL 02/20/2023 8:05 PM CDT [facility] Hematocrit 38.3 35.0 - 47.0 % 02/20/2023 8:05 PM CDT [facility] MCV 96 78 - 100 fL 02/20/2023 8:05 PM CDT [facility] MCH 31.6 26.5 - 33.0 pg 02/20/2023 8:05 PM CDT [facility] MCHC 32.9 31.5 - 36.5 g/dL 02/20/2023 8:05 PM CDT [facility] RDW 13.2 10.0 - 15.0 % 02/20/2023 8:05 PM CDT [facility] Platelet Count 258 150 - 450 10e3/uL 02/20/2023 8:05 PM CDT [facility] % Neutrophils 55 % 02/20/2023 8:05 PM CDT [facility] % Lymphocytes 28 % 02/20/2023 8:05 PM CDT [facility] % Monocytes 10 % 02/20/2023 8:05 PM CDT [facility] % Eosinophils 6 % 02/20/2023 8:05 PM CDT [facility] % Basophils 1 % 02/20/2023 8:05 PM CDT [facility] % Immature Granulocytes 0 % 02/20/2023 8:05 PM CDT [facility] NRBCs per 100 WBC 0 <1 /100 023 8:05 PM CDT [facility] Absolute Neutrophils 3.1 1.6 - 8.3 10e3/uL 02/20/2023 8:05 PM CDT [facility] Absolute Lymphocytes 1.6 0.8 - 5.3 10e3/uL 02/20/2023 8:05 PM CDT [facility] Absolute Monocytes 0.6 0.0 - 1.3 10e3/uL 02/20/2023 8:05 PM CDT [facility] Absolute Eosinophils 0.4 0.0 - 0.7 10e3/uL 02/20/2023 8:05 PM CDT [facility] Absolute Basophils 0.1 0.0 - 0.2 10e3/uL 02/20/2023 8:05 PM CDT [facility] Absolute Immature Granulocytes 0.0 <=0.4 10e3/uL 02/20/2023 8:05 PM CDT [facility] Absolute NRBCs 0.0 10e3/uL 02/20/2023 8:05 PM CDT [facility] Blood STRUCTURE OF RIGHT HAND / Unknown Venipuncture / Unknown 02/20/2023 7:54 PM CDT 02/20/2023 8:01 PM CDT Ankit Pratt MD LAB - BLOOD ORDER NICOLE [facility] [address] [employer] Lab (1st floor, no room number) [place] [address], [facility] [phone] * INR (02/20/2023 7:54 PM CDT) INR 1.11 0.85 - 1.15 02/20/2023 8:13 PM CDT [facility] Blood STRUCTURE OF RIGHT HAND / Unknown Venipuncture / Unknown 02/20/2023 7:54 PM CDT 02/20/2023 8:01 PM CDT Ankit Pratt MD LAB - BLOOD ORDER NICOLE [facility] [address] Lab (1st floor, no room number) [place] [address], [facility] [phone] * Troponin T, High Sensitivity (now) (02/20/2023 7:54 PM CDT) Pathologist [facility] Troponin T, High Sensitivity <6 <=14 ng/L 02/20/2023 8:24 PM CDT [facility] Comment: Either a High Sensitivity Troponin T baseline (0 hours) value = 100 ng/L, or an increase in High Sensitivity Troponin T = 7 ng/L at 2 hours compared to 0 hours (2-0 hours), suggests myocardial injury, and urgent clinical attention is required. ?? If the 2-0 hours increase is <7 ng/L, a High Sensitivity Troponin T result above gender-specific reference ranges warrants further evaluation. Recommendations for further evaluation include correlation with clinical decision-making tool (e.g., HEART), a 3rd High Sensitivity Troponin T test 2 hours after the 2nd (a 20% change from baseline would represent concern), admission for observation, close PCC/cardiology follow-up, or urgent outpatient provocative testing. Blood STRUCTURE OF RIGHT HAND / Unknown Venipuncture / Unknown 02/20/2023 7:54 PM CDT 02/20/2023 8:04 PM CDT Ankit Pratt MD LAB - BLOOD ORDER NICOLE [facility] [address] Lab (1st floor, no room number) [place] [address], [facility] [phone] * (ABNORMAL) Basic metabolic panel (BMP) (02/20/2023 7:54 PM CDT) Pathologist [facility] Sodium 135(L) 136 - 145 mmol/L 02/20/2023 8:24 PM CDT LABORATORY Potassium 3.6 3.4 - 5.3 mmol/L 02/20/2023 8:24 PM CDT LABORATORY Chloride 100 98 - 107 mmol/L 02/20/2023 8:24 PM CDT LABORATORY Carbon Dioxide (CO2) 19(L) 22 - 29 mmol/L 02/20/2023 8:24 PM CDT LABORATORY Anion Gap 16(H) 7 - 15 mmol/L 02/20/2023 8:24 PM CDT [facility] Urea Nitrogen 17.4 8.0 - 23.0 mg/dL 02/20/2023 8:24 PM CDT [facility] Creatinine 0.87 0.51 - 0.95 mg/dL 02/20/2023 8:24 PM CDT [facility] Calcium 9.0 8.8 - 10.2 mg/dL 02/20/2023 8:24 PM CDT [facility] Glucose 171(H) 70 - 99 mg/dL 02/20/2023 8:24 PM CDT [facility] GFR Estimate 65 >60 mL/min/1.7 3m2 02/20/2023 8:24 PM CDT LABORATORY Blood STRUCTURE OF RIGHT HAND / Unknown Venipuncture / Unknown 02/20/2023 7:54 PM CDT 02/20/2023 8:04 PM CDT Ankit Pratt MD LAB - BLOOD ORDER NICOLE [facility] Lab [address] Lab (1st floor, no room number) [place] [id number], [facility] [phone] * Extra Purple Top Tube (02/20/2023 7:54 PM CDT) Hold Specimen [facility] 02/20/2023 9:01 PM CDT LABORATORY Blood STRUCTURE OF RIGHT HAND / Unknown Venipuncture / Unknown 02/20/2023 7:54 PM CDT 02/20/2023 8:01 PM CDT Ankit Pratt MD LAB - BLOOD ORDER NICOLE [facility] Lab [address] Lab (1st floor, no room number) [place] [address], [facility] [phone] * Extra Green Top ([place] Heparin) Tube (02/20/2023 7:54 PM CDT) Hold Specimen [facility] 02/20/2023 9:16 PM CDT [facility] LABORATORY Blood STRUCTURE OF RIGHT HAND / Unknown Venipuncture / Unknown 02/20/2023 7:54 PM CDT 02/20/2023 8:04 PM CDT Ankit Pratt MD LAB - BLOOD ORDER NICOLE [facility] [address] Lab (1st floor, no room number) [place] [address], [place] [phone] * Extra Red Top Tube (02/20/2023 7:54 PM CDT) Hold Specimen [facility] 02/20/2023 9:01 PM CDT [facility] LABORATORY Blood STRUCTURE OF RIGHT HAND / Unknown Venipuncture / Unknown 02/20/2023 7:54 PM CDT 02/20/2023 8:01 PM CDT Ankit Pratt MD LAB - BLOOD ORDER NICOLE [facility] [address] Lab (1st floor, no room number) [place] [address], [place] [phone] * Extra Blue Top Tube (02/20/2023 7:54 PM CDT) Hold Specimen [facility] 02/20/2023 9:01 PM CDT [facility] LAB[facility]ATORY Blood STRUCTURE OF RIGHT HAND / Unknown Venipuncture / Unknown 02/20/2023 7:54 PM CDT 02/20/2023 8:01 PM CDT Ankit Pratt MD LAB - BLOOD ORDER NICOLE [facility] [address] Lab (1st floor, no room number) [place] [address], [place] [phone] * EKG 12 lead (02/20/2023 7:51 PM CDT) Systolic Blood Pressure mmHg RADIOLOGY RESULTS Diastolic Blood Pressure mmHg RADIOLOGY RESULTS Ventricular Rate 81 BPM RAD IOLOGY RESULTS Atrial Rate 81 BPM RADIOLOG Y RESULTS PA Interval 150 ms RADIOLOG Y RESULTS QRS Duration 84 ms RADIOLO GY RESULTS QT 394 ms RADIOLOGY RESULTS QTc 457 ms RADIOLOGY RESULTS P [place] 48 degrees RADIOLOGY RESULTS R AXIS 18 degrees RADIOLOGY RESULTS T [place] 40 degrees RADIOLOGY RESULTS Interpretation ECG Sinus rhythm Normal ECG No previous ECGs available RADIOLOGY RESULTS 02/20/2023 7:51 PM CDT 02/20/2023 10:41 PM CDT Ankit Pratt MD ECG ORDERABLES RADIOLOGY RESULTS documented in this encounter Visit Diagnoses Diagnosis Episode of dizziness Dizziness and giddiness Episodic weakness Dehydration documented in this encounter Administered Medications Inactive Administered Medications - up to 3 most recent administrations Medication Order MAR Action Action Date Dose Rate Site 0.9% sodium chloride BOLUS Intravenous, 1,000 mL, ONCE, On Ni 02/20/23 at 1999, For 1 dose $New Bag 02/20/2023 9:00 PM CDT 1,000 mLs 0.9% sodium chloride BOLUS Intravenous, 1,000 mL, ONCE, On Ni 02/20/23 at 2010, For 1 dose $New Bag 02/20/2023 8:25 PM CDT 1,000 mLs 0.9% sodium chloride BOLUS Intravenous, 1,000 mL, ONCE, On Ni 02/20/23 at 2250, For 1 dose $New Bag 02/20/2023 10:53 PM CDT 1,000 mLs documented in this encounter Active and Recently Administered Medications Times are shown in CDT. Scheduled Medication Order 02/19/2023 02/20/2023 02/21/2023 0.9% sodium chloride BOLUS (COMPLETED) Intravenous, 1,000 mL, ONCE, On Ni 02/20/23 at 1999, For 1 dose 2100 ($New Bag - Provider: Tierney Luke RN)2237 (Stopped - Provider: Tierney Luke RN) 0.9% sodium chloride BOLUS (COMPLETED) Intravenous, 1,000 mL, ONCE, On Ni 02/20/23 at 2009, For 1 dose 2024 ($New Bag - Provider: Tierney Luke RN - Comment: Pt received bolus of fluids immediately on arrival due to pts status, before order was put in)2100 (Stopped - Provider: Tierney Luke, ARIAN) 0.9% sodium chloride BOLUS (COMPLETED) Intravenous, 1,000 mL, ONCE, On Ni 02/20/23 at 2250, For 1 dose 2252 ($New Bag - Provider: Tierney Luke RN)2344 (Stopped - Provider: Tierney Luke RN) documented in this encounter Additional Health Concerns Infection Onset Date Last Indicated Resolved Time Rule Out COVID-19 02/20/2023 02/20/2023 02/20/2023 9:46 PM CDT documented as of this encounter 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
--- OUTSIDE RECORDS SUMMARY | 2023-08-21 13:24 | XMS_ITS | Clinical Summary ---
Author Name Unknown Organization [facility] Address [place], [place] [address] Care Team Providers Care Diabetes Clinical Manager Name Role Phone Clinic, No Pcp Or Primary Care Provider Unavaila ble Allergies Active Allergy Reactions Criticality Noted Date Comments Lidocaine Hcl Other - Describe In Comment Field 12/10/2017 Vaginal burning, vaginal pain, urinary incontinence. Salix Rash 12/02/2017 After total knee Unlisted Allergen (Include Detail In Comments) *Unknown - Pt Doesn't Remember 10/16/2017 Very sensitive to narcotic dosage. States had a dose of narcotic on arrival to PACU early in the morning and unable to leave recovery until late in the evening due to hypoxia. Medications Medication Sig Dispensed Refills Start Date End Date Status lisinopril (PRINIVIL; ZESTRIL) 10 mg tablet Take 1 tablet by mouth once daily. 0 01/22/2018 Active aspirin (ECOTRIN) 81 mg enteric coated tablet Take 1 tablet by mouth once daily with a meal. 0 05/25/2019 Active Active Problems Problem Noted Date Diagnosed Date Leg DVT (deep venous thromboembolism), acute, le ft 11/20/2017 Left leg swelling 11/20/2017 Anemia 11/20/2017 Leukocytosis 10/22/2017 Normocytic anemia 10/22/2017 Abscess 10/21/2017 Essential hypertension 10/21/2017 Hyponatremia 10/21/2017 Carcinoma 10/21/2017 Overview: . 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 Maximum tumor size: 2.1 cm ?c. Myometrial invasion: Present (1.0/1.3 cm (76.9%)) ?d. Lower uterine segment involvement: ??Absent ?e. Cervical involvement: ??Absent ?f. Uterine serosal involvement: Absent ?g. Angiolymphatic invasion: Present (focal) ?h. Margins: Uninvolved by tumor ?i. Microsatellite Instability Testing: Performed previously, showing: ? i. 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 ii. MLH1 promoter hypermethylated Immunizations Name Administration Dates Next Due COVID-19 vaccine (Eqalix 30mcg/0.3mL) P FBETTINA 09/27/2020,09/06/2020 Family History Medical History Relation Name Comments Cancer Brother NHL Cancer Maternal Uncle 1 leukemia Cancer Maternal Uncle 2 lung Cancer-breast Paternal Grandmother Cancer-colon No Family History Cancer-prostate No Family History Relation Name Status Comments Brother Maternal Uncle 1 Maternal Uncle 2 Paternal Grandmother Social History Tobacco Use Types Packs/Day Years Used Date Smoking Tobacco: Never Smokeless Tobacco: Never Alcohol Use Standard Drinks/Week Comments Yes 0 (1 standard drink = 0.6 oz pur e alcohol) 1-2 drinks/wk Sex and Gender Information Value Date Recorded Sex Assigned at Not on file Gender Identity Not on file Sexual Orientation Not on file Obstetrics History Para Term AB IAB SAB Ectopic Multiple Livin g Live Births 1 1 Date Outcome GA Total Labor Labor/2nd/3rd Weight Sex Delivery Anes PTL Tavia A1 A5 Name Cl in Para Last Filed Vital Signs Vital Sign Reading Time Taken Comments Blood Pressure 114/68 05/25/2019 10:53 AM CDT Pulse 64 05/25/2019 10:53 AM CDT Temperature 36.4 ??C (97.5 ??F) 05/25/2019 1 0:53 AM CDT Respiratory Rate 14 05/25/2019 10:5 3 AM CDT Oxygen Saturation 97% 01/22/2018 11: 18 AM CDT Inhaled Oxygen Concentration - - Weight 114.2 kg (251 lb 12.8 oz) 2018 10:53 AM CDT Height 175.3 cm (5' 9) 05/25/2019 10:5 3 AM CDT Body Mass Index 37.18 05/25/2019 10:53 AM CDT Plan of Treatment Health Maintenance Due Date Last Done Comments Tdap 1950 Depression screening for age 12+ 1951 Tetanus booster 1959 Zoster (shingles) series for age 50+ (1 of 2) 1989 DEXA/DXA scan for age 65+ 01/31/2004 Medicare Wellness for age 65+ 01/31/2004 Pneumococcal series for age 65+ (1 of 1 - PCV) 01/31/2004 BMI (ht and wt on same day) for age 18+ 05/25/2020 05/25/2019, 01/22/2018, 01/06/2018 COVID-19 vaccine series (2022- season) 2023 09/27/2020, 09/06/2020 Influenza for age 65+ 03/28/2023 Advance Directives Latest Code Status on File Code Status Date Activated Date Inactivated Comments Full Code 12/16/2017 9:10 AM 12/17/2017 2:39 AM Question Answer Comments Code Status Discussion: Not Discussed Code Status History Code Status Date Activated Date Inactivated Comments Full Code 12/08/2017 6:12 AM 12/09/2017 2:36 AM Question Answer Comments Code Status Discussion: Not Discussed Full Code 10/21/2017 7:53 PM 11/07/2017 1:55 PM Full Code 09/19/2017 12:14 PM 09/19/2017 6:45 PM Full Code 09/19/2017 5:52 AM 09/19/2017 12:14 PM Care Teams Diabetes Clinical Manager Relationship Specialty Start Date End Date Clinic, No Pcp Or . PCP - General 09/05/20
--- NOTE | 2023-08-21 13:30 | CRLHL7_ITS ---
For Patients: As a result of the Century Cures Act, medical imaging exams and procedure reports are released immediately into your electronic medical record. You may view this report before your referring provider. If you have questions, please contact your health care provider. DXA BONE MINERAL DENSITY STUDY Reason for exam: Asymptomatic menopausal state. Current height (in): 69.0. Weight (lb): 235.0. Menopause age: 51. Ethnicity: White. 1. Have you had a previous hip or vertebral fracture? No. 2. Have you had any fractures during your adult life which did not result from significant trauma (e.g., auto accident)? No. 3. Did either of your parents have a hip fracture? No. 4. Do you smoke? No. 5. Have you ever taken Glucocorticoids? No. 6. Do you have rheumatoid arthritis? No. 7. Do you have secondary osteoporosis? No. 8. Do you drink 3 or more alcoholic drinks per day? No. 9. Are you being treated for osteoporosis? No. 10. Have you ever taken any of the following medications: Actonel, Evista, Fosamax, Miacalcin, Reclast, Boniva, Forteo, HRT (i.e. estrogen/hormone therapy), Protelos, Prolia, Vitamin D, Calcium, other ??? please specify. ANSWER: Yes, vitamin D, calcium. 11. Do you have any of the following medical conditions: Anorexia or bulimia, asthma or emphysema, end stage renal disease, hyperparathyroidism, any seizure disorders, cancer, inflammatory bowel diseases, hysterectomy, other ??? please specify. ANSWER: Yes, cancer, hysterectomy. 12. What was your maximum height (inches)? 69. 13. Do you perform weight bearing exercise regularly? No. 14. Do you regularly consume dairy products? Yes. 15. Do you drink caffeinated beverages? No. 16. At what age did your period start? 12. 17. Are you premenopausal? No. 18. How many full term pregnancies have you had? 1. 19. Have you ever missed your period for more than 6 months in a row (not including or menopause)? No. TECHNIQUE: Bone mineral density study was performed using the [employer]. FINDINGS: The results of the study expressed as bone mineral density (BMD) are as follows: Lumbar spine L1 to L2: BMD: 1.003 g/cm2. T-score: 0.2. Z-score: 2.9. Neck Left: BMD: 0.758 g/cm2. T-score: -0.8. Z-score: 1.7. Right: BMD: 0.635 g/cm2. T-score: -1.9. Z-score: 0.6. Total Left: BMD: 0.891 g/cm2. T-score: -0.4. Z-score: 1.9. Right: BMD: 0.906 g/cm2. T-score: -0.3. Z-score: 2.0. IMPRESSION: Osteopenia. *Comparison exams done prior to 12/2019 were performed on different unit, [employer]. COMPARISON: Compared with scan of 11/08/2020, the bone mineral density has decreased by 6.4 percent at the spine and increased by 1.5 percent at the hip. FRAX 10-year Fracture Risk Major Osteoporotic Fracture: 14 percent Hip Fracture: 4.2 percent Reported Risk Factors: [place] () Neck BMD=0.635, BMI=34.7 Bandar Leblanc M.D. Diagnostic Radiologist [email or web address] MAXIM/roseline / be/Dictated by: Bandar Leblanc MD @ 08/22/2023 8:19:00 AM (Electronically Signed)
== END 2023-08-21 13:03 | disposition home or self-care (01) ==
LOC: RAD 13:03
PROVIDERS: PCP Physician Assistant Medical; Visit Provider Physician Assistant Medical
DX: Z13.820 Encounter for screening for osteoporosis (principal); M85.89 Other specified disorders of bone density and structure, multiple sites; Z78.0 Asymptomatic menopausal state
CPT/HCPCS: 77080

== ENCOUNTER 2024-03-02 12:31 | Outpatient (CLI) | payer MEDICARE, OTHER, SELFPAY | END 2024-03-02 12:32 | disposition home or self-care (01) | LOC: NFLDREF 03-03 10:14 | PROVIDERS: PCP Physician Assistant Medical; Referring Provider Physician Assistant Medical; Visit Provider Nurse Practitioner Family | DX: R30.0 Dysuria (principal); N30.90 Cystitis, unspecified without hematuria; J02.9 Acute pharyngitis, unspecified | CPT/HCPCS: 87086 ==

== ENCOUNTER 2024-09-22 09:23 | Outpatient (CLI) | payer MEDICARE, OTHER, SELFPAY | END 2024-09-22 09:24 | disposition home or self-care (01) | PROVIDERS: PCP Physician Assistant Medical; Visit Provider Physician Assistant Medical | DX: E78.5 Hyperlipidemia, unspecified (principal); I10 Essential (primary) hypertension; R63.4 Abnormal weight loss; Z13.29 Encounter for screening for other suspected endocrine disorder | CPT/HCPCS: 80053; 80061; 84443 ==